=== PATIENT | male | born 1955 | race African-American/Black ===

== ENCOUNTER 2018-01-03 22:21 | Emergency (ER) | payer SELFPAY ==
[~2018-01-03] VITALS: Ht 172.7 cm; Wt 91.0 kg
[2018-01-03 23:14] VITALS: BP 158/89
== END 2018-01-04 02:22 | disposition left against medical advice (07) ==
LOC: ER 22:21
DX: M25.561 Pain in right knee (principal); Z53.21 Procedure and treatment not carried out due to patient leaving prior to being seen by health care provider

== ENCOUNTER 2018-01-04 07:09 | Emergency (ER) | payer MEDICAID, OTHER ==
[~2018-01-04] VITALS: Ht 172.7 cm; Wt 91.0 kg
[2018-01-04] MEDS ORDERED: IBUPROFEN 600MG TABLET PO ONE (11:45)
[2018-01-04 13:13] VITALS: BP 128/78
== END 2018-01-04 13:15 | disposition home or self-care (01) ==
LOC: ER 07:55
DX: M25.561 Pain in right knee (principal); Z88.0 Allergy status to penicillin
CPT/HCPCS: 73562; 99284